=== PATIENT | female | born 1980 | race Caucasian/White ===

== ENCOUNTER 2025-01-11 15:07 | Inpatient (IN) | payer BC, SELFPAY ==
[2025-01-11] VITALS (7 sets, daily range): BP systolic 131–178; BP diastolic 80–110; BMI 30.1; BMI 30.6
--- NOTE | 2025-01-11 12:12 | ED.GENMED ---
History of Present Illness
General
Chief Complaint: Skin Problem
Source: patient
Exam Limitations: none
Time Seen by Provider: 01/11/25 12:02
History of Present Illness
History of Present Illness:
44yoF with a history of type 2 diabetes and hypertension presenting for evaluation of a right great toe infection. Symptoms initially began 6 days ago with an ingrown toenail. She was seen at urgent care 6 days ago and was started on
clarithromycin. She did not have any improvement with this so she was seen by a supervisor marble 3 days ago and her toenail was removed. She is here with worsening symptoms and a new ulcer on the toe. Wound culture at urgent care reportedly grew out
staph. She denies any fevers or chills. No prior history of MRSA.
Past History
Past History
ED Past Medical History: Negative Asthma, HTN, Hypercholesterolemia or NIDDM
ED Past Surgical History: None
Social History
Tobacco: Former smoker
Alcohol: Daily (Beer 4 and more on the weekends)
Personal:
Living: with family
Phy Exam
General Physical Exam
General Presentation: well appearing and no apparent distress
General Skin: warm and dry
General Habitus: normal
General Mental: alert
ENT Exam
ENT Exam: normocephalic
Neurological Exam
Neurological Exam: alert
[place] Coma Scale
Eye Opening: Spontaneous
Verbal Response: Oriented
Motor Response: Obeys Commands
GCS Total Score: 15
Skin Exam
Skin Exam: other (R great toe: Digit swollen with erythema extending into distal foot. There is purulence centrally. No crepitus or pain out of proportion. 2+ DP pulse.)
Psychiatric Exam
Psychiatric Exam: normal mood/affect
Course
Orders/Labs/Results
Orders:
Orders
01/11/25 12:09
Test Result ONCE
CR Toe(s) Min 2 Vw Right Urgent
Comment:
Reason For Exam: great toe infection
01/11/25 12:33
CRP [C-Reactive Protein] Urgent
Complete Blood Count/With Diff Urgent
Comprehensive Metabolic Panel Urgent
ESR [Erythrocyte Sed Rate] Urgent
HCG, Serum Qualitative Screen Urgent
Wound Culture [Wound/Abscess/Other Culture] Urgent
AINSLEY Source: Toe
Specimen Description:
Date Specimen was Collected: 01/11/25
Time Specimen was Collected: 12:20
Comment: R great toe
01/11/25 14:10
Cefepime HCl [Maxipime] 2,000 mg IV NOW STA
01/11/25 14:25
Vancomycin [Vancocin] 2,000 mg 0.9% Sodium Chloride 500 ml [Nss] 500 ml IV NOW
01/11/25 14:37
Consult Podiatry [PODIATRY CONSULT] Routine
Consulting Provider: Rodney Sarabia
Was physician already notified: Yes
01/11/25 14:38
Admit/Transfer Patient As Directed
Co-Sign Provider:
Level of Care: Inpatient admission
Assign to:: Medical/Surgical
Physician / Group: david san
Diagnosis: osteomyelitis
Reason for Hospitalization: osteomyelitis
Expected length of stay greater than two midnights?: Yes
ELOS- Estimated Length of Stay in days: 3
I certify the patient meets the requirements for IP care: Yes
PRN Pain Medication Management As Directed
May give lesser potent ordered pain med per pt: Yes
preference::
Protocol:: Medication orders for pain may be administered in a
manner that supports deferring to patient preference
when the pt is:
- Requesting an ordered lesser potent pain medication.
Least to most potent pain medications are defined
as: acetaminophen < NSAID < tramadol < opioids
(morphine, oxycodone, hydromorphone).
- Requesting a lesser dose of the same medication IF
ORDERED.
- Requesting a less intrusive route of administration
if both routes are prescribed by the provider (PO <
IV).
01/11/25 14:39
Code Status As Directed
Resuscitation Status: Full Code
Abnormal Lab Results
01/11/25
12:33
MCH 31.8 H pg
(27.0-31.0)
Absolute Neuts (auto) 7.1 H 10^3/uL
(1.4-6.5)
Absolute Monos (auto) 0.7 H 10^3/uL
(0.1-0.6)
ESR 34 H mm/hour
(0-20)
Sodium 134 L mmol/L
(135-145)
Creatinine 0.4 L mg/dL
(0.6-1.0)
Glucose 325 H mg/dl
(70-99)
C-Reactive Protein 26.70 H mg/L
(0.0-10.00)
01/11/25 12:33
01/11/25 12:33
Vital Signs
Initial and Last Documented VS:
Initial Vital Signs
Temp Pulse Resp BP Pulse Ox
98.1 F 104 16 178/110 98
01/11/25 10:52 01/11/25 10:52 01/11/25 10:52 01/11/25 10:52 01/11/25 10:52
Last Documented Vital Signs
Temp Pulse Resp BP Pulse Ox
97.5 F 86 22 152/95 95
01/11/25 12:44 01/11/25 12:44 01/11/25 12:44 01/11/25 12:44 01/11/25 12:44
MDM/Problems Addressed
Differential Diagnosis Includes:
44yoF here with a R great toe infection. Currently on clarithromycin without improvement. Had toenail removed by supervisor marble 3 days ago. No f/c. She is hypertensive with otherwise stable vitals. Toe is swollen and erythemaous with purulent drainage.
Differential diagnosis includes but is not limited to: Cellulitis, abscess, osteomyelitis
Initial ED plan: Check CBC, CMP, ESR/CRP, and toe x-rays.
*Critical Care Note
Total Time (30-74mins, 75-104mins- exclusive of procedures): Not Applicable
Update Note
Update Note:
White count normal. Both ESR and CRP are elevated. Glucose elevated at 325. X-ray shows findings concerning for osteomyelitis. IV cefepime and vancomycin ordered. Patient admitted for further management.
ED Attending Note
-
Portions of this chart may have been created with voice recognition software.� Occasional wrong word or��sound alike� substitutions may have occurred due to the inherent limitations of voice recognition software.
Discharge Plan
Departure
Patient Disposition: Admit
Date of Disposition: 01/11/25
Time of Disposition: 14:13
Presentation/result/management discussed w/ accepting MD/DO: Hospitalist
Discharge Problem:
Diabetic infection of right foot, Osteomyelitis of great toe of right foot
Interventions
Interventions:
*Risk Screen - Suicide Last Done: 01/11/25 10:52
*General Assessment Last Done: 01/11/25 12:44
*Neglect/Abuse Screening Last Done: 01/11/25 10:52
*ED- Fall Risk Assessment Last Done: 01/11/25 12:44
*ED COVID-19 Vaccine History Last Done: 01/11/25 12:44
ED-Skin Assessment Last Done: 01/11/25 12:44
[2025-01-11 12:50] LABS: % Basophils 0.6 % (0-2); % Eosinophils 1.8 % (0-6); % Immature Granulocytes 0.3 % (0-0.5); % Lymphocytes 24.3 % (20.5-51.1); % Monocytes 6.2 % (1.7-9.3); % Neutrophils 66.8 % (42.2-75.2); Absolute Basophils 0.1 10^3/uL (0-0.2); Absolute Eosinophils 0.2 10^3/uL (0-0.7); Absolute Lymphocytes 2.6 10^3/uL (1.2-3.4); Absolute Monocytes 0.7 10^3/uL (0.1-0.6); Absolute Neutrophils 7.1 10^3/uL (1.4-6.5); Hematocrit 42.3 % (37.0-47.0); Hemoglobin 14.7 g/dL (12.0-16.0); Mean Corp Hgb Conc. 34.8 g/dL (33.0-37.0); Mean Corpuscular Hgb 31.8 pg (27.0-31.0); Mean Corpuscular Volume 91.6 fL (81.0-99.0); Mean Platelet Volume 8.6 fL (7.4-10.4); Nucleated Red Blood Cells % 0 %; Platelet Count 319 10^3/uL (130-400); Red Blood Cell Count 4.62 10^6/uL (4.20-5.40); Red Cell Dist. Width 12.4 % (11.5-14.5); White Blood Cell Count 10.6 10^3/uL (4.8-10.8)
[2025-01-11 13:02] LABS: HCG, Serum Qualitative Screen Negative
[2025-01-11 13:03] LABS: ALT (SGPT) 13 U/L (0-35); AST (SGOT) 16 U/L (14-36); Albumin 3.6 g/dl (3.5-5.0); Alkaline Phosphatase 105 U/L (38-126); Blood Urea Nitrogen 10 mg/dl (7-17); Calcium 9.1 mg/dl (8.4-10.2); Carbon Dioxide 24 mmol/L (22-30); Chloride 104 mmol/L (98-107); Estimated Creatinine Clearance 119 ml/min; Glucose 325 mg/dl (70-99); Potassium 4.6 mmol/L (3.5-5.1); Sodium 134 mmol/L (135-145); Total Bilirubin 0.6 mg/dl (0.2-1.3); eGFR > 60.00
[2025-01-11 13:13] LABS: Erythrocyte Sed Rate 34 mm/hour (0-20)
--- NOTE | 2025-01-11 14:16 | HPS.HSE ---
Addendum entered and electronically signed by Maurilio Cronin MD 01/11/25 15:10:
I saw and examined the patient.
The EYEGLASS LENS CUTTER or PA's note was reviewed and I agree with the note.
Comment: see updated note
Original Note:
Family Physician
-
Family Physician: Don Last MD
Chief Complaint
-
right great toe infection
History of Present Illness
44yoF with a history of type 2 diabetes and hypertension presenting for evaluation of a right great toe infection. a week an half ago, patient pulled ingrown toe nail with clipper. after few days, she noticed redness and swelling. patient was
evaluated by Urgent care who prescribed her abx on Sunday. patient noticed worsening redness and swelling. her wound culture from Urgent care grew staph. the Podiatry removed her toe nails on . today she woke up with ulcer on her toe,
worsening redness and weeping from her wound. denied fever, chills, BEEBE, dizzy . denied chest pain, sob.denied abdominal pain,n,v,d. denied dysuria or hematuria.
wound culture sent from ER. X ray of toes pending. initiated on cefepime and vanco
Medical History
Past Medical History
Past Medical History: Reports Other
Additional Past Medical History:
Type 2 DM
HTN
depression
Past Surgical History: Reports Other
Additional Past Surgical History:
c section
Social History
Tobacco: Smoker
Alcohol: Occasional
Drug: None
Family History
Family History: Not pertinent
Allergies / Home Medications
Allergies reflects when Allergies were last updated in [facility].
Home Medications with original date entered in [facility]
Allergy/Medication List:
Allergies
Allergy/AdvReac Type Severity Reaction Status Date / Time
Penicillins Allergy Nausea / Verified 01/11/25 10:55
Vomiting
Home Medications
ibuprofen 400 mg tablet 400 mg PO Q6HPRN PRN as directed 12/16/17
Review of Systems
-
Constitutional: Reports No Symptoms
EENT: Reports No Symptoms
Respiratory: Reports No Symptoms
Cardiac: Reports No Symptoms
Abdomen/GI: Reports No Symptoms
: Reports No Symptoms
Musculoskeletal: Reports No Symptoms
Skin: Reports Other (right great toe infection)
Neurological: Reports No Symptoms
Endocrine: Reports No Symptoms
Hematologic/Lymphatic: Reports No Symptoms
Psych: Reports No Symptoms
Physical Exam
Vital Signs
Vital Signs
Temp Pulse Resp BP Pulse Ox
97.5 F 86 22 152/95 95
01/11/25 12:44 01/11/25 12:44 01/11/25 12:44 01/11/25 12:44 01/11/25 12:44
Physical Exam
General: Well Developed, Well Nourished and No Apparent Distress
HEENT: NormoCephalic, Moist mucous membranes and Atraumatic
Respiratory: Clear
Cardiac: S1/S2 and Regular Rhythm; No Murmur or Rub
GI: Soft, Non Tender, Non Distended and Normal Bowel Sounds; No Organomegaly
Rectal: Deferred by Provider
Musculoskeletal: No Clubbing, No Cyanosis and No Edema
Skin: Rash and Other (right great toe wound with purulent drainage)
Neuro: AO x 3 and Nonfocal/grossly intact
Psych: Calm
Laboratory Results
-
01/11/25 12:33
01/11/25 12:33
Laboratory Results
Total Bilirubin 0.6 mg/dl (0.2-1.3) 01/11/25 12:33
AST 16 U/L (14-36) 01/11/25 12:33
ALT 13 U/L (0-35) 01/11/25 12:33
Alkaline Phosphatase 105 U/L (38-126) 01/11/25 12:33
Data Reviewed
-
Diagnostic Radiology: Report Reviewed by me
Lab Data: Labs Reviewed by me
Impression/Plan
-
#Right great toe infection/osteomyelitis
-failed outpatient oral abx
-ESR 34, CRP 26
-cefepime and vanco continued
-podiatry consulted
-Tylenol prn for fever, and pain
-toe x r ay There is severe darrick erosive change/lucency within the distal phalanx tuft of the great toe, in keeping with osteomyelitis. Overlying soft tissue swelling.No acute fracture or dislocation. Joint spaces are well-maintained.
-wound culture sent from ER
#type 2 DM with hyperglycemia
-blood sugar in 300s
-metformin held
-sliding scale
-CHO diet
#essential HTN
-losartan and Norvasc continued with hold parameter
#DVT prophylaxis
-heparin sq
#CODE status
-full code
--- NOTE | 2025-01-11 14:23 | W.PN.UPDATE ---
Update Note
Progress Note Update
This note serves as an addendum to the H&P by casket coverer STEVE
Lynsey MUNDO
HPI
44F HX T2DM sen at ER
- for or evaluation of a right great toe infection initially began 6 days ago with an ingrown toenail.
- seen at urgent care 6 days ago and was started on clarithromycin.
- did not have any improvement with this so she was seen by a blade sharpener 3 days ago and her toenail was removed. She is here with worsening symptoms and a new ulcer on the toe.
- Wound culture at urgent care reportedly grew out staph.
- She denies any fevers or chills.
- No prior history of MRSA.
Vital Signs
Temp Pulse Resp BP Pulse Ox
97.5 F 86 22 152/95 95
01/11/25 12:44 01/11/25 12:44 01/11/25 12:44 01/11/25 12:44 01/11/25 12:44
PE
Gen: Not toxic
HEENT: anicteric , no pallor
Neck: supple. No JVD
Lungs: symmetric AE. CTA
Cor: RRR S1 S2 . No mumur
Abdomen: benign exam
COMMUNICATIONS ADVISOR AAO3. Grossly non focal
Skin & MS:
Psych: normal mood and affect
Lab
01/11/25
12:33
WBC 10.6
ESR 34 H
C-Reactive Protein 26.70 H
HCG, Qual Negative
XR Rt great toe: reports pending
NO PRIOR hospitalist admission:
ASSESSMENT & PLAN
Pending Rx reconciliation
Purulent SSTI of Rt Great toe complicated by XR suggestion of acute OM in distal phalanx tuft of Rt Great toe
s/p self removal of ingrowing toe nail with nail clippers trauma while
S/P total toe nail removal by blade sharpener
- No associated sepsis
- Elevated inflammatory markers
- Pending XR for OM
- WD Cx POS Staph ( MRSA vs MSSA ) from [facility] - to obtain records for m [facility]
- Agree with IV Vancomycin and CFP
- Director Of Supply Chain consult
T2DM
- Hold Metformin
- add ISS
DVT Px: LMWH
Full code
IP MS
[2025-01-11] MEDS: MAXIPIME 2000 MG IV (14:51)
[2025-01-11] MEDS: VANCOCIN 540 MG IV (14:52)
--- NOTE | 2025-01-11 15:30 | W.PN.UPDATE ---
Update Note
Progress Note Update
Patient seen at beside Right hallux osteotmyelitis
-Broad spectrum ABx, consult ID
-Stat MRI Right lower extremity
-Plan for OR tomorrow, partial toe ampuation, will leave open to drain
-Iodine to right hallux wound
-heel weight bearing
-strict glycemic control
-Will follow
--- NOTE | 2025-01-11 17:12 | EDRN ---
this RN called the receiving unit and notified the receiving nurse that the pt was going to be sent up
--- NOTE | 2025-01-11 18:23 | PHA.VAN.IN ---
Assessment
- Assessment
Renal Function: Appears similar to baseline
Maximum Temperature: 98.7
Minimum Temperature: 97.5
Concomitant Antimicrobials: CEFEPIME
AUC Dosing Plan
- Dosing Variables
Dosing Weight (kg): 80.7
Dosing CrCl (ml/min): 120
Vd coefficient (L/kg): 0.6
- Empiric Dosing
Initial / Loading Dose: 2000MG
Maintenance Regimen: 1250MG Q12H
Estimated AUC (mcg*h/mL): 535
Estimated Peak (mcg*h/mL): 36.2
Estimated Trough (mcg/ml): 12.2
Estimated Half Life (H): 6.7
- Monitoring
No levels ordered at this time: Consider levels in next few days
Pharmacokinetics Vancomycin I
- -
Patient Age: 44
Patient Sex: Female
Vancomycin Day #: 1
Indication: Skin And Soft Tissue
Requesting Provider: Kelsie FLOWER
Pertinent Antimicrobial Allergies:
PENICILLINS
Height / Weight:
Height 5 ft 4 in
Actual Weight 80.739 kg
- Vital Signs / Lab Results
Temp Pulse Resp BP Pulse Ox
98.7 F 85 20 149/99 94
01/11/25 18:06 01/11/25 18:06 01/11/25 18:06 01/11/25 18:06 01/11/25 18:06
Lab Results - Hematology
01/11/25
12:33
WBC 10.6
Lab Results - Chemistry
01/11/25
12:33
BUN 10
Creatinine 0.4 L
Estimated Creat Clear 119
Albumin 3.6
Microbiology Results
01/11/25 12:33 Gram Stain - Preliminary
Toe
--- NOTE | 2025-01-11 18:30 | PTCARENOTE ---
Pt arrived to floor from ED via stretcher. Ambulated to unit bed. Right halux red, swollen. Pt stating minimal pain. Health history obtained and assessment as documented.
[2025-01-11] MEDS: NOVOLOG FLEXPEN-MODERATE RESISTANCE 3 UNITS SC (18:33)
[2025-01-11] MEDS: TYLENOL 650 MG PO (18:39)
[2025-01-11 18:40] LABS: Glucose - Point of Care 242 mg/dl (70-99)
[2025-01-11] MEDS: HEPARIN 5000 UNITS SC (21:00)
[2025-01-11] MEDS: STERILE WATER FOR INJECTION 10 ML IV (21:04)
[2025-01-11] MEDS: MAXIPIME 1000 MG IV (21:04)
[2025-01-11 21:43] LABS: Glucose - Point of Care 298 mg/dl (70-99)
[2025-01-12] VITALS (10 sets, daily range): BP systolic 103–142; BP diastolic 58–95
[2025-01-12] MEDS: MAXIPIME 1000 MG IV ×4 (04:45→21:20)
[2025-01-12] MEDS: STERILE WATER FOR INJECTION 10 ML IV ×4 (04:46→21:20)
[2025-01-12] MEDS: VANCOCIN 275 MG IV (06:20)
[2025-01-12 06:23] LABS: Glucose - Point of Care 290 mg/dl (70-99)
[2025-01-12] MEDS: NOVOLOG FLEXPEN-MODERATE RESISTANCE 5 UNITS SC ×2 (06:24→17:14)
--- NOTE | 2025-01-12 07:59 | W.PN.HOSP.TC ---
Today's Communication/Plan
-
-Follow Wound culture which was taken at OR this am
-Discontinue vancomycin
-Continue cefepime
-Started oral metronidazole
-insulin started
-Diabetic STADIUM MANAGER consulted
Assessment / Plan
Assessment / Plan
Patient is a 44-year-old female with a past medical history of type 2 diabetes mellitus, hypertension and depression. The patient presented to the ER with her right toe ulcer and oozing from that area. Her toe x-ray showed severe darrick erosive
change/lucency within the distal phalanx tuft of the great toe, in keeping with osteomyelitis. Overlying soft tissue swelling. She was consulted to podiatry, wound care team and infectious disease.
# Right toe infection complicated with osteomyelitis
- Toe x-ray: There is severe darrick erosive change/lucency within the distal phalanx tuft of the great toe, in keeping with osteomyelitis. Overlying soft tissue swelling.
- Toe MRI:Darrick osteomyelitis throughout the great toe distal phalanx. Reactive osteitis of the proximal phalanx. Surrounding subcutaneous edema without abscess. Cannot rule out early septic arthritis of the interphalangeal joint.
-Podiatry consulted: Had amputation this am: Had right open hallux amputation with a plan for return to the OR on 514 for closure--cultures taken
-Wound culture at surgery is pending-taking 01/12/2025-
-Wound culture at admission on 01/11/2025: Grew Staph aureus
- Discontinue vancomycin
- Continue cefepime
- Started oral metronidazole
# Type 2 diabetes mellitus
- Hemoglobin A1c:12.0--last year it was 9
- Denies neuropathy
- Tight glucose control is needed for this patient
-Metformin hold for now
- mod ISS
-Insulin started
- Diabetic diet
- Diabetic STADIUM MANAGER was consulted
# Hypertension
- Continue Norvasc 10 mg
- Continue losartan
# Depression
- Continue sertraline 50
#DVT prophylaxis
-heparin sq
#CODE status
-full code
Anticipated Discharge: 24 - 48 hours
Subjective/Interval History
-
Date of Service: January 12, 2025
Patient had her right total amputated this a.m. Denies any pain on surgical site.
Objective Data
-
Labs:
Laboratory Results
01/12/25
07:42
WBC Pending
Hgb Pending
Hct Pending
Plt Count Pending
Sodium Pending
Potassium Pending
Chloride Pending
Carbon Dioxide Pending
BUN Pending
Creatinine Pending
Glucose Pending
Calcium Pending
Vital Signs:
Vital Signs
Temp Pulse Resp BP Pulse Ox
98.6 F 69 16 146/80 96
01/11/25 23:01 01/11/25 23:01 01/11/25 23:01 01/11/25 23:01 01/11/25 23:01
Review of Systems
-
History Source: Patient
EENT: Reports No Symptoms Reported
Respiratory: Reports No Symptoms
Cardiac: Reports No Symptoms
Abdomen/GI: Reports No Symptoms
Musculoskeletal: Reports Joint Swelling (Right toe swelling before the surgery)
Skin: Reports No Symptoms
Neuro: Reports No Symptoms
Physical Exam
-
General: Well Developed, Well Nourished, Comfortable and Conversant
HEENT: Normocephalic and Atraumatic
Respiratory: Clear to Auscultation
Cardiac: Regular Rhythm and S1/S2
GI: Soft, Nontender and Nondistended
Musculoskeletal: No Clubbing, No Cyanosis, No Edema and Other (Patient's right foot was seen in bandage. )
Skin: Warm
Neuro: Awake, Alert, Oriented, AO x 3 and Nonfocal/Grossly Intact
Psych: Calm
--- NOTE | 2025-01-12 08:44 | CON.ID ---
Consultation
-
Date/Time Consultation Requested: January 12, 2025 0800
Date/Time Consultation Performed: January 12, 2025 0845
Requesting Provider: Dr. Cece Stout
Performing Provider: Dr. Luz Elena Colunga
Reason for Consultation: Toe osteo
Chief Complaint / Past History
Chief Complaint
Toe infection
History of Present Illness
44-year-old female with history of diabetes mellitus who presented to the hospital on January 11 due to worsening right great toe redness and swelling. Approximately 2 weeks ago she tried to remove an ingrown toenail from the right great toe. Few days
later the toe became red and swollen. On January 05 she went to [facility] urgent care, toe drainage was swabbed which was positive for MSSA and Prevotella. She was prescribed clarithromycin. She then had follow-up with podiatry on at which time the
nail was removed. However yesterday morning she woke up with drainage, increased redness and swelling from the toe. No fevers or chills. X-ray of the toe shows erosive bone changes concerning for osteomyelitis. She just returned from the MRI.
Denies neuropathy.
Past History
Additional Past Medical History:
DM2
HTN
Depression
Additional Past Surgical History:
Allergy History:
Penicillins Allergy (Verified 01/11/25 10:55)
Nausea / Vomiting
Medications Reviewed: Yes
Current Antibiotics:
Cefepime 1g IV q6h
Vancomycin
Social History
Tobacco: Smoker
Alcohol: Occasional
Drug: None
Personal:
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
Family History
Family History: Not Pertinent
Review of Systems
Review of Systems
General: Negative Fever, Chills or Change in Appetite
HEENT: Negative Sinus Problems or Headache
Cardiovascular: Negative Chest Pain
Respiratory: Negative Cough
Gasteroenterology: Negative Nausea, Vomiting or Diarrhea
Genital / Urological: Negative Dysuria
Endocrine: Negative Weakness or Fatigue
Vital Signs
Temp Pulse Resp BP Pulse Ox
98.2 F 72 16 139/80 97
01/12/25 07:55 01/12/25 07:55 01/12/25 07:55 01/12/25 07:55 01/12/25 07:55
Physical Exam
Physical Exam
Constitutional: No Acute Distress and Comfortable
Eyes: No Conjunctival Hemorrhage and Sclera Anicteric
Cardiovascular: Regular Rate and S1/S2
Pulmonary: Clear
Gastrointestinal: Soft, Non Tender, Non Distended and Normal Bowel Sounds
Genito-Urinary: Negative CVA Tenderness
Extremities: Pulses (strong pedal pulses bilaterally)
Wound: Other (Right great toe 3+ edema, erythema entire toe to forefoot, dorsal wound with purulent drainage.)
Neurological: AO x 3
Lab / Diagnostic Study Results
Abs Immat Gran (auto) 0.0 10^3/uL (0-0.05) 01/11/25 12:33
Absolute Neuts (auto) 7.1 10^3/uL (1.4-6.5) H 01/11/25 12:33
Absolute Lymphs (auto) 2.6 10^3/uL (1.2-3.4) 01/11/25 12:33
Absolute Monos (auto) 0.7 10^3/uL (0.1-0.6) H 01/11/25 12:33
Absolute Basos (auto) 0.1 10^3/uL (0-0.2) 01/11/25 12:33
Immature Gran % 0.3 % (0-0.5) 01/11/25 12:33
Neutrophils % 66.8 % (42.2-75.2) 01/11/25 12:33
Lymphocytes % 24.3 % (20.5-51.1) 01/11/25 12:33
Monocytes % 6.2 % (1.7-9.3) 01/11/25 12:33
Eosinophils % 1.8 % (0-6) 01/11/25 12:33
Basophils % 0.6 % (0-2) 01/11/25 12:33
ESR 34 mm/hour (0-20) H 01/11/25 12:33
C-Reactive Protein 26.70 mg/L (0.0-10.00) H 01/11/25 12:33
Microbiology Results
Micro:
01/11/25 21:33 MRSA Screen - Pending
Nose
01/11/25 12:33 Wound Culture - Pending
Toe Gram Stain - Preliminary
01/11/25 Toe XRAY: There is severe darrick erosive change/lucency within the distal phalanx tuft of the great toe, in keeping with osteomyelitis. Overlying soft tissue swelling.
Assessment / Plan
# Right great toe osteo
# Diabetic ulcer
- Await MRI result
-Outpt swab MSSA, prevotella
- DC Vancomycin
-Continue cefepime.
-Add po metronidazole.
- For toe amputation.
- Recommend tight glucose control.
[2025-01-12 09:20] LABS: Blood Urea Nitrogen 10 mg/dl (7-17); Calcium 8.8 mg/dl (8.4-10.2); Carbon Dioxide 24 mmol/L (22-30); Chloride 104 mmol/L (98-107); Estimated Creatinine Clearance 120 ml/min; Glucose 279 mg/dl (70-99); Potassium 4.5 mmol/L (3.5-5.1); Sodium 133 mmol/L (135-145); eGFR > 60.00
[2025-01-12] MEDS: HEPARIN SC (09:37)
[2025-01-12] MEDS: ZOLOFT 50 MG PO (09:45)
[2025-01-12] MEDS: NORVASC 10 MG PO (09:45)
[2025-01-12] MEDS: COZAAR 50 MG PO (09:45)
[2025-01-12] MEDS: NOVOLOG FLEXPEN-MODERATE RESISTANCE 3 UNITS SC (11:53)
[2025-01-12 12:04] LABS: Glucose - Point of Care 248 mg/dl (70-99)
--- NOTE | 2025-01-12 12:04 | CM ---
Patient seen bedside.
DX osteo of right great toe.
IA completed.
patient lives with significant other and 3 children in a 2 story home with 3 steps to enter.
No assistive devices.
Patient drives and works.
Patient independent prior to admission.
Patient has not had VN or skilled rehab.
SO will transport home.
Patient for OR today.
PCP: Dr Last
Pharmacy: [facility]
Plan: home with possible VN
--- NOTE | 2025-01-12 13:50 | W.PN.SURGUPD ---
Surgical Update
Surgical Update
44 yo F s/p R partial hallux open amputation left open
-Dressings to remain C/D/I
-Abx per ID recs, 1x culture 1x pathology obtained
-Heel WBAT to RLE
-Plan for return to OR 01/15 for repeat washout and closure if appropriate
[2025-01-12 13:59] LABS: Glucose - Point of Care 210 mg/dl (70-99)
[2025-01-12 14:19] LABS: Glucose - Point of Care 220 mg/dl (70-99)
--- NOTE | 2025-01-12 14:19 | WOUNDNOTE ---
WOC RN note: Confirmed with Dr. Ed Pa to cancel WOC RN consult. Patient's toe being managed by podiatric surgeon.
--- NOTE | 2025-01-12 15:17 | PTCARENOTE ---
perot received from pacu. pt returned back to room. aaox3. vss. pulse ox 91%. 2lnc placed for comfort. r toe bulky dressing cdi. no complaints offered at this time. call rowe in reach. will monitor.
[2025-01-12] MEDS: FLAGYL 500 MG PO ×2 (15:29→21:19)
[2025-01-12 17:12] LABS: Glucose - Point of Care 262 mg/dl (70-99)
[2025-01-12 18:29] LABS: Hematocrit 44.4 % (37.0-47.0); Hemoglobin 15.1 g/dL (12.0-16.0); Mean Corpuscular Hgb 32.1 pg (27.0-31.0); Mean Corpuscular Volume 94.3 fL (81.0-99.0); Platelet Count 332 10^3/uL (130-400); Red Blood Cell Count 4.71 10^6/uL (4.20-5.40); Red Cell Dist. Width 12.7 % (11.5-14.5); White Blood Cell Count 9.4 10^3/uL (4.8-10.8)
[2025-01-12] MEDS: HEPARIN 5000 UNITS SC (21:15)
[2025-01-12] MEDS: TYLENOL 650 MG PO (21:15)
[2025-01-12 21:31] LABS: Glucose - Point of Care 298 mg/dl (70-99)
[2025-01-12] MEDS: LANTUS 0.15 UNITS SC (21:37)
[2025-01-13] VITALS (7 sets, daily range): BP systolic 120–150; BP diastolic 66–96; PULSE 63–76; O2SAT 97
[2025-01-13] MEDS: STERILE WATER FOR INJECTION 10 ML IV (04:20)
[2025-01-13] MEDS: MAXIPIME 1000 MG IV (04:20)
[2025-01-13] MEDS: FLUSH (NSS) 2 FLUSH IV (04:21)
--- NOTE | 2025-01-13 07:09 | W.PN.HOSP.TC ---
Today's Communication/Plan
-
-Cefepime narrowed to to cefazolin
-Continue oral metronidazole
-Insulin maintenance dose adjusted
Assessment / Plan
Assessment / Plan
Patient is a 44-year-old female with a past medical history of type 2 diabetes mellitus, hypertension and depression. The patient presented to the ER with her right toe ulcer and oozing from that area. Her toe x-ray showed severe darrick erosive
change/lucency within the distal phalanx tuft of the great toe, in keeping with osteomyelitis. Overlying soft tissue swelling. She was consulted to podiatry, wound care team and infectious disease.
# Right toe septic arthritis complicated with osteomyelitis
- Toe x-ray: There is severe darrick erosive change/lucency within the distal phalanx tuft of the great toe, in keeping with osteomyelitis. Overlying soft tissue swelling.
- Toe MRI:Darrick osteomyelitis throughout the great toe distal phalanx. Reactive osteitis of the proximal phalanx. Surrounding subcutaneous edema without abscess. Cannot rule out early septic arthritis of the interphalangeal joint.
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
-Wound culture at surgery is pending-taking 01/12/2025: Staphylococcus aureus and group F Streptococcus
-Wound culture at admission on 01/11/2025: Grew Staph aureus: MSSA
- Discontinue vancomycin
- ID narrowed cefepime to cefazolin
- Continue oral metronidazole
- Pain management: Oxycodone PRN
# Type 2 diabetes mellitus
- Hemoglobin A1c:12.0--last year it was 9
- Denies neuropathy
- Tight glucose control
-Metformin hold for now
- mod ISS
-Insulin started and dose adjusted by diabetic PRE CODER
- Diabetic diet
# Hypertension
- Continue Norvasc 10 mg
- Continue losartan
# Depression
- Continue sertraline 50
#DVT prophylaxis
-heparin sq
#CODE status
-full code
Anticipated Discharge: 24 - 48 hours
Subjective/Interval History
-
Date of Service: January 13, 2025
Patient denies any fever or chills. No pain on surgical site
Objective Data
-
Labs:
Laboratory Results
01/13/25
07:02
WBC Pending
Hgb Pending
Hct Pending
Plt Count Pending
Sodium Pending
Potassium Pending
Chloride Pending
Carbon Dioxide Pending
BUN Pending
Creatinine Pending
Glucose Pending
Calcium Pending
Total Bilirubin Pending
AST Pending
ALT Pending
Alkaline Phosphatase Pending
Vital Signs:
Vital Signs
Temp Pulse Resp BP Pulse Ox
98.3 F 62 16 123/80 96
01/13/25 03:00 01/13/25 03:00 01/13/25 03:00 01/13/25 03:00 01/13/25 03:00
I&O
01/12/25 01/13/25 01/14/25
06:59 06:59 06:59
Intake Total 480 / 480
Balance 480 / 480
Review of Systems
-
History Source: Patient
EENT: Reports No Symptoms Reported
Respiratory: Reports No Symptoms
Cardiac: Reports No Symptoms
Abdomen/GI: Reports No Symptoms
Genitourinary: Reports No Symptoms
Musculoskeletal: Reports Other (See HPI )
Skin: Reports No Symptoms
Neuro: Reports No Symptoms
Physical Exam
-
General: Well Developed, Well Nourished, Comfortable and Conversant
HEENT: Normocephalic and Atraumatic
Respiratory: Clear to Auscultation
Cardiac: Regular Rhythm and S1/S2
GI: Soft, Nontender and Nondistended
Musculoskeletal: No Clubbing, No Cyanosis, No Edema and Other (See HPI)
Skin: Warm
Neuro: Awake, Alert, Oriented, AO x 3 and Nonfocal/Grossly Intact
Psych: Calm
[2025-01-13] MEDS: HEPARIN 5000 UNITS SC ×2 (07:18→22:10)
[2025-01-13] MEDS: COZAAR 50 MG PO (07:18)
[2025-01-13] MEDS: FLAGYL 500 MG PO ×3 (07:18→22:10)
[2025-01-13] MEDS: NORVASC 10 MG PO (07:18)
[2025-01-13] MEDS: ZOLOFT 50 MG PO (07:18)
[2025-01-13 07:37] LABS: Hematocrit 38.9 % (37.0-47.0); Hemoglobin 13.6 g/dL (12.0-16.0); Mean Corpuscular Volume 91.5 fL (81.0-99.0); Mean Platelet Volume 8.8 fL (7.4-10.4); Platelet Count 312 10^3/uL (130-400); Red Blood Cell Count 4.25 10^6/uL (4.20-5.40); Red Cell Dist. Width 12.2 % (11.5-14.5); White Blood Cell Count 10.7 10^3/uL (4.8-10.8)
[2025-01-13 07:50] LABS: ALT (SGPT) 13 U/L (0-35); AST (SGOT) 14 U/L (14-36); Albumin 3.5 g/dl (3.5-5.0); Alkaline Phosphatase 92 U/L (38-126); Blood Urea Nitrogen 11 mg/dl (7-17); Calcium 8.8 mg/dl (8.4-10.2); Carbon Dioxide 23 mmol/L (22-30); Chloride 106 mmol/L (98-107); Estimated Creatinine Clearance 120 ml/min; Glucose 218 mg/dl (70-99); Potassium 4.1 mmol/L (3.5-5.1); Sodium 132 mmol/L (135-145); Total Bilirubin 0.5 mg/dl (0.2-1.3); Total Protein 7.5 g/dl (6.3-8.2); eGFR > 60.00
[2025-01-13] MEDS: NOVOLOG FLEXPEN 3 UNITS SC (07:55)
[2025-01-13] MEDS: NOVOLOG FLEXPEN-MODERATE RESISTANCE 3 UNITS SC ×2 (07:55→12:21)
--- NOTE | 2025-01-13 08:01 | W.PN.SURGUPD ---
Surgical Update
Surgical Update
44 yo F s/p open right hallux amputation 01/12
-Patient recovering well at bedside, dressings to remain C/D/I
-Pain improving
-Continue antibiotics per ID recs, f/u culture results
-Tentatively plan for return to OR 01/15 for closure if appropriate
-Heel WBAT for transfers to [facility]
--- NOTE | 2025-01-13 08:29 | PN.DE.MGMTRT ---
Insulin Management
- -
01/14/2024: Diabetes Management Consult
44 year old female with PMH: HTN, Depression and T2DM, presented to the ER with her right toe ulcer and oozing from that area. Her toe x-ray showed severe darrick erosive change/lucency within the distal phalanx tuft of the great toe, concerning for
osteomyelitis. Now s/p right open hallux amputation with a plan for return to the OR on 01/14 for closure. Diabetes team consulted to assist with management of hyperglycemia.
Pt awake, alert, oriented, sitting up in bed, offers no complaints, able to discuss diabetes care plan.
States she was initially dx with T2DM 2 years ago. Has been taking Metformin 1000mg BID prior to admission. A1C 12.0%, reports it was 9 last year but she gave up on herself taking care of her Dtr who was dealing with ulcerative colitis. Cr 0.5,
eGFR >60.
Current diabetes regimen includes Lantus 15 units and NovoLog 3 units AC.
Glucose uncontrolled with FBG 218, Premeal range 210 to 290 requiring 3-5 units of additional corrective insulin with meals.
Will give an additional 1 time dose of 5 units aspart this morning before breakfast.
Increase AC NovoLog to 6 units and Lantus to 18 units @ HS. Metformin will remain on hold for now in anticipation for upcoming surgery.
Discussed with pt current A1C and emphasized importance of optimal glucose control for wound healing and to avoid further diabetes related complications.
Will con to follow and make further insulin dose adjustments if necessary
Diabetes History
- -
Type of Diabetes: 2 requiring insulin
Pre-Admission Diabetes Regimen
01/12/25 01/13/25
07:42 07:02
Creatinine 0.4 L 0.5 L
Lab Results
Hemoglobin A1c 12.0 % (4.0-5.6) H 01/12/25 07:42
Insulin Pump Settings
IP Diabetes Regimen
01/12/25 01/12/25 01/12/25
07:42 11:53 13:56
Glucose 279 H
POC Glucose 248 H 210 H
01/12/25 01/12/25 01/12/25
14:18 17:00 21:19
Glucose
POC Glucose 220 H 262 H 298 H
01/13/25
07:02
Glucose 218 H
POC Glucose
Patient Education
[2025-01-13] MEDS: NOVOLOG FLEXPEN 5 UNITS SC (09:04)
--- NOTE | 2025-01-13 10:34 | W.PN.ID1 ---
Date of Service
Date of Service: January 13, 2025
Today's Communication
NArrow cefepime to cefazolin.
Assessment / Plan
# Distal Right great toe osteo
# Diabetic ulcer
- 01/12/25 s/p open toe amp.
- OR cx and path pending
-Inpt swab S. aureus
-Outpt swab MSSA, prevotella
- Narrow cefepime to cefazolin.
- Continue po metronidazole for now.
- For wound closure 01/15, per podiatry
- Recommend tight glucose control.
Chief Complaint
-: Other (Osteo)
Subjective / Review of Systems
No post-op pain.
Vital Signs / Physical Exam
Vital Signs
Vital Signs
Temp Pulse Resp BP Pulse Ox
98.4 F 58 14 131/78 99
01/13/25 07:47 01/13/25 07:47 01/13/25 07:47 01/13/25 07:47 01/13/25 07:47
Objective Data
Lab Data
Lab Results
01/13/25 07:02
01/13/25 07:02
ESR 34 mm/hour (0-20) H 01/11/25 12:33
Estimated Creat Clear 120 ml/min 01/13/25 07:02
Total Bilirubin 0.5 mg/dl (0.2-1.3) 01/13/25 07:02
AST 14 U/L (14-36) 01/13/25 07:02
ALT 13 U/L (0-35) 01/13/25 07:02
Alkaline Phosphatase 92 U/L (38-126) 01/13/25 07:02
C-Reactive Protein 26.70 mg/L (0.0-10.00) H 01/11/25 12:33
Most recent labs reviewed.
Micro Results:
01/11/25 12:33 Wound Culture - Preliminary
Toe Staphylococcus aureus
Coagulase neg. staphylococcus
Gram Stain - Preliminary
01/11/25 21:33 MRSA Screen - Final
Nose No Methicillin Resistant Staphylococcus aureus isolated.
01/12/25 13:50 Wound Culture - Pending
Toe Gram Stain - Preliminary
01/12/25 13:50 Anaerobic Culture - Pending
Toe
01/11/25 Toe XRAY: There is severe darrick erosive change/lucency within the distal phalanx tuft of the great toe, in keeping with osteomyelitis. Overlying soft tissue swelling.
01/12/25 MRI: Darrick osteomyelitis throughout the great toe distal phalanx. Reactive osteitis of the proximal phalanx. Surrounding subcutaneous edema without abscess. Cannot rule out early septic arthritis of the interphalangeal joint.
[2025-01-13] MEDS: STERILE WATER FOR INJECTION IV (10:51)
[2025-01-13] MEDS: MAXIPIME IV (10:51)
--- NOTE | 2025-01-13 11:50 | CM ---
Patient seen bedside.
Post op partial amputation.
Per patient plan is for return to OR .
Patient peterson of CM availability should needs arise.
Discussed possible VN and anbx.
PLan: home with possible IV anbx/VN needs.
[2025-01-13] MEDS: NOVOLOG FLEXPEN 6 UNITS SC ×2 (12:21→17:45)
[2025-01-13] MEDS: ANCEF 10 IV ×2 (14:18→22:11)
[2025-01-13] MEDS: TYLENOL 650 MG PO ×2 (14:28→19:47)
[2025-01-13] MEDS: NOVOLOG FLEXPEN-MODERATE RESISTANCE 5 UNITS SC (17:45)
[2025-01-13 17:47] LABS: Glucose - Point of Care 255 mg/dl (70-99)
[2025-01-13 17:47] LABS: Glucose - Point of Care 212 mg/dl (70-99)
[2025-01-13 21:39] LABS: Glucose - Point of Care 282 mg/dl (70-99)
[2025-01-13] MEDS: LANTUS 0.18 UNITS SC (22:10)
[2025-01-14] MEDS: ANCEF 10 IV ×3 (06:26→21:23)
[2025-01-14 07:23] LABS: Hematocrit 39.2 % (37.0-47.0); Hemoglobin 13.7 g/dL (12.0-16.0); Mean Corp Hgb Conc. 34.9 g/dL (33.0-37.0); Mean Corpuscular Hgb 32.1 pg (27.0-31.0); Mean Corpuscular Volume 91.8 fL (81.0-99.0); Mean Platelet Volume 8.8 fL (7.4-10.4); Platelet Count 327 10^3/uL (130-400); Red Blood Cell Count 4.27 10^6/uL (4.20-5.40); Red Cell Dist. Width 12.5 % (11.5-14.5); White Blood Cell Count 9.3 10^3/uL (4.8-10.8)
--- NOTE | 2025-01-14 07:26 | W.PN.HOSP.TC ---
Today's Communication/Plan
-
-Continue to cefazolin and oral metronidazole
-Surgery plan for tomorrow
-NPO after midnight
-Follow-up anaerobic wound culture result
Assessment / Plan
Assessment / Plan
Patient is a 44-year-old female with a past medical history of type 2 diabetes mellitus, hypertension and depression. The patient presented to the ER with her right toe ulcer and oozing from that area. Her toe x-ray showed severe darrick erosive
change/lucency within the distal phalanx tuft of the great toe, in keeping with osteomyelitis. Overlying soft tissue swelling. She was seen by podiatry, wound care team, infectious disease and diabetic nurse practitioner.
# Right toe septic arthritis complicated with osteomyelitis
- Toe x-ray: There is severe darrick erosive change/lucency within the distal phalanx tuft of the great toe, in keeping with osteomyelitis. Overlying soft tissue swelling.
- Toe MRI:Darrick osteomyelitis throughout the great toe distal phalanx. Reactive osteitis of the proximal phalanx. Surrounding subcutaneous edema without abscess. Cannot rule out early septic arthritis of the interphalangeal joint.
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
-Anaerobic wound culture at surgery is pendin01/12/2025--- wound culture grew out Staphylococcus aureus and group F Streptococcus
-Wound culture at admission on 01/11/2025: Grew Staph aureus: MSSA
- Continue to cefazolin
- Continue oral metronidazole
- Pain management: Oxycodone PRN
# Type 2 diabetes mellitus
- Hemoglobin A1c:12.0--last year it was 9
- Denies neuropathy
- Tight glucose control
-Metformin hold for now
- mod ISS
-Insulin dose adjusted by diabetic CLINICAL ACADEMIC ALLERGIST
- Diabetic diet
# Hypertension
- Continue Norvasc 10 mg
- Continue losartan
# Depression
- Continue sertraline 50
#DVT prophylaxis
-heparin sq
#CODE status
-full code
Anticipated Discharge: 24 - 48 hours
Subjective/Interval History
-
Date of Service: January 14, 2025
Patient reports no complaints over the night. Reports very mild pain on surgical site.
Objective Data
-
Labs:
Laboratory Results
01/14/25
06:41
WBC 9.3
Hgb 13.7
Hct 39.2
Plt Count 327
Sodium Pending
Potassium Pending
Chloride Pending
Carbon Dioxide Pending
BUN Pending
Creatinine Pending
Glucose Pending
Calcium Pending
Total Bilirubin Pending
AST Pending
ALT Pending
Alkaline Phosphatase Pending
Vital Signs:
Vital Signs
Temp Pulse Resp BP Pulse Ox
98.1 F 49 16 120/66 97
01/13/25 23:17 01/13/25 23:17 01/13/25 23:17 01/13/25 23:17 01/13/25 23:17
I&O
01/13/25 01/14/25 01/15/25
06:59 06:59 06:59
Intake Total 480 / 480
Balance 480 / 480
Review of Systems
-
History Source: Patient
All other systems: Reviewed and negative
Physical Exam
-
General: Well Developed, Well Nourished, No Apparent Distress and Comfortable
HEENT: Normocephalic and Atraumatic
Respiratory: Clear to Auscultation
Cardiac: Regular Rhythm and S1/S2
GI: Soft, Nontender and Nondistended
Musculoskeletal: No Clubbing, No Cyanosis, No Edema and Other (bandage on the left foot )
Skin: Warm
Neuro: Awake, Alert, Oriented and AO x 3
Psych: Calm
[2025-01-14 07:36] LABS: ALT (SGPT) 15 U/L (0-35); AST (SGOT) 17 U/L (14-36); Albumin 3.6 g/dl (3.5-5.0); Alkaline Phosphatase 94 U/L (38-126); Blood Urea Nitrogen 15 mg/dl (7-17); Calcium 8.8 mg/dl (8.4-10.2); Carbon Dioxide 24 mmol/L (22-30); Chloride 105 mmol/L (98-107); Estimated Creatinine Clearance 120 ml/min; Glucose 226 mg/dl (70-99); Potassium 4.2 mmol/L (3.5-5.1); Sodium 136 mmol/L (135-145); Total Bilirubin 0.4 mg/dl (0.2-1.3); Total Protein 7.6 g/dl (6.3-8.2); eGFR > 60.00
[2025-01-14 07:51] VITALS: BP 140/86
[2025-01-14 08:59] LABS: Glucose - Point of Care 216 mg/dl (70-99)
[2025-01-14] MEDS: COZAAR 50 MG PO (09:12)
[2025-01-14] MEDS: FLAGYL 500 MG PO ×3 (09:12→21:23)
[2025-01-14] MEDS: NORVASC 10 MG PO (09:12)
[2025-01-14] MEDS: NOVOLOG FLEXPEN-MODERATE RESISTANCE 3 UNITS SC ×2 (09:12→13:29)
[2025-01-14] MEDS: ZOLOFT 50 MG PO (09:12)
[2025-01-14] MEDS: HEPARIN 5000 UNITS SC ×2 (09:12→21:23)
[2025-01-14] MEDS: NOVOLOG FLEXPEN 6 UNITS SC (09:13)
[2025-01-14] MEDS: TYLENOL 650 MG PO ×3 (09:18→22:31)
--- NOTE | 2025-01-14 10:27 | PN.DE.MGMTRT ---
Insulin Management
- -
01/15/2024: Diabetes Management Follow up
44 year old female with PMH: HTN, Depression and T2DM, presented to the ER with her right toe ulcer and oozing from that area. Her toe x-ray showed severe darrick erosive change/lucency within the distal phalanx tuft of the great toe, concerning for
osteomyelitis. Now s/p right open hallux amputation with a plan for return to the OR on 01/14 for closure. Diabetes team consulted to assist with management of hyperglycemia. States she was initially dx with T2DM 2 years ago. Has been taking
Metformin 1000mg BID prior to admission. A1C 12.0%, reports it was 9 last year but she gave up on herself taking care of her Dtr who was dealing with ulcerative colitis. Cr 0.5, eGFR >60.
Pt awake, alert, oriented, sitting up in bed, offers no complaints, able to discuss diabetes care plan.
Was started on AC NovoLog yesterday, premeal glucose remained elevated 212 to 255, requiring 3-5 units of additional corrective insulin with meals.
Received Lantus 18 units @ HS, FBG 226 V, 216 POC.
will increase AC NovoLog to 10 units and Lantus to 20 units. Cont moderate corrective with meals
Metformin will remain on hold for now in anticipation for upcoming surgery.
Discussed with pt current A1C and emphasized importance of optimal glucose control for wound healing and to avoid further diabetes related complications.
Will con to follow and make further insulin dose adjustments if necessary
Diabetes History
- -
Type of Diabetes: 2 requiring insulin
Pre-Admission Diabetes Regimen
01/14/25
06:41
Creatinine 0.5 L
Lab Results
Hemoglobin A1c 12.0 % (4.0-5.6) H 01/12/25 07:42
Insulin Pump Settings
IP Diabetes Regimen
01/13/25 01/13/25 01/13/25
12:06 17:15 21:23
Glucose
POC Glucose 212 H 255 H 282 H
01/14/25 01/14/25
06:41 08:48
Glucose 226 H
POC Glucose 216 H
Meal type: Dinner
Amount consumed: 100%
Patient Education
--- NOTE | 2025-01-14 11:57 | W.PN.ID1 ---
Date of Service
Date of Service: January 14, 2025
Today's Communication
Continue metronidazole and cefazolin.
Assessment / Plan
# Distal Right great toe osteo
# Diabetic ulcer
- 01/12/25 s/p open toe amp.
- OR cx MSSA, Group F strep,
Bone path pending
- Continue cefazolin and metronidazole.
- For wound closure 01/15, per podiatry
- Recommend tight glucose control.
Chief Complaint
-: Other (Osteo)
Subjective / Review of Systems
No complaints.
Vital Signs / Physical Exam
Vital Signs
Vital Signs
Temp Pulse Resp BP Pulse Ox
98.0 F 60 14 140/86 98
01/14/25 07:51 01/14/25 09:12 01/14/25 07:51 01/14/25 09:12 01/14/25 07:51
Physical Exam
Constitutional: No Acute Distress and Comfortable
Pulmonary: Clear
Gastrointestinal: Soft, Non Tender and Non Distended
Wound: Other (right foot dressing dry)
Objective Data
Lab Data
Lab Results
01/14/25 06:41
01/14/25 06:41
ESR 34 mm/hour (0-20) H 01/11/25 12:33
Estimated Creat Clear 120 ml/min 01/14/25 06:41
Total Bilirubin 0.4 mg/dl (0.2-1.3) 01/14/25 06:41
AST 17 U/L (14-36) 01/14/25 06:41
ALT 15 U/L (0-35) 01/14/25 06:41
Alkaline Phosphatase 94 U/L (38-126) 01/14/25 06:41
C-Reactive Protein 26.70 mg/L (0.0-10.00) H 01/11/25 12:33
Most recent labs reviewed.
Micro Results:
01/12/25 13:50 Wound Culture - Preliminary
Toe Staphylococcus aureus
Group F Streptococcus
Gram Stain - Preliminary
01/12/25 13:50 Anaerobic Culture - Preliminary
Toe Culture pending. Anaerobic cultures are examined after 3
days incubation. Additional information to follow.
01/11/25 12:33 Wound Culture - Final
Toe S aureus-Methicillin Sensitive
Coagulase neg. staphylococcus
Group F Streptococcus
Gram Stain - Final
01/11/25 21:33 MRSA Screen - Final
Nose No Methicillin Resistant Staphylococcus aureus isolated.
01/11/25 Toe XRAY: There is severe darrick erosive change/lucency within the distal phalanx tuft of the great toe, in keeping with osteomyelitis. Overlying soft tissue swelling.
01/12/25 MRI: Darrick osteomyelitis throughout the great toe distal phalanx. Reactive osteitis of the proximal phalanx. Surrounding subcutaneous edema without abscess. Cannot rule out early septic arthritis of the interphalangeal joint.
[2025-01-14 12:49] LABS: Glucose - Point of Care 227 mg/dl (70-99)
--- NOTE | 2025-01-14 13:12 | W.PN.UPDATE ---
Update Note
Progress Note Update
I saw and evaluated the patient. I reviewed the resident�s note and agree with findings and plan as documented in the resident�s note.
1. Diabetic foot infection/right toe osteomyelitis -initially started as some nail issues which was removed by rehabilitation construction specialist in office. X-ray at admission showing some bone erosion. MRI foot confirmed finding of great toe distal phalanx
osteomyelitis. Patient underwent partial toe amputation by podiatry. Intraoperative wound culture growing Staphylococcus aureus/grew Peptostreptococcus. Currently being maintained on Ancef/Flagyl.
2. Uncontrolled type 2 diabetes -patient already on metformin with hemoglobin A1c of 9 in the past. Currently hemoglobin of 12 this visit. Discussed need of insulin and better blood glucose control to avoid further issues with diabetic foot
infection or further diabetic micro-vascular complication. Patient is agreeable. Will consult diabetic nurse practitioner to help. Patient being educated on how to give insulin to herself.
Patient plan to go for closure of right foot incision by podiatry tomorrow. Possible discharge afterward if cleared by podiatry.
[2025-01-14] MEDS: NOVOLOG FLEXPEN 10 UNITS SC ×2 (13:27→18:09)
[2025-01-14 15:57] VITALS: BP 140/77
--- NOTE | 2025-01-14 16:10 | W.PN.SURGUPD ---
Surgical Update
Surgical Update
44 yo F s/p partial hallux open amputation
-Plans for delayed primary closure tomorrow 01/15
-Please keep NPO after midnight
-DOS labs: CBC/BMP
--- NOTE | 2025-01-14 16:17 | CM ---
Patient seen at bedside
states she is for the OR tomorrow
discussed that CM following for needs
PLAN: home with possible IV abx/VN needs.
[2025-01-14] MEDS: NOVOLOG FLEXPEN-MODERATE RESISTANCE SC (17:44)
[2025-01-14 17:53] LABS: Glucose - Point of Care 140 mg/dl (70-99)
[2025-01-14 21:53] LABS: Glucose - Point of Care 182 mg/dl (70-99)
[2025-01-14] MEDS: LANTUS 0.1 UNITS SC (22:35)
[2025-01-14 23:12] VITALS: BP 128/75
[2025-01-15] VITALS (8 sets, daily range): BP systolic 107–148; BP diastolic 69–90
[2025-01-15] MEDS: ANCEF 10 IV ×3 (05:42→21:14)
--- NOTE | 2025-01-15 05:45 | W.PN.HOSP.TC ---
Addendum entered and electronically signed by Ed Pa MD 01/15/25 14:31:
I saw and evaluated the patient. I reviewed the resident�s note and agree with findings and plan as documented in the resident�s note.
1. Diabetic foot infection/right toe osteomyelitis -initially started as some nail issues which was removed by lens and frames prescription clerk in office. X-ray at admission showing some bone erosion. MRI foot confirmed finding of great toe distal phalanx
osteomyelitis. Patient underwent partial toe amputation by podiatry. Intraoperative wound culture growing Staphylococcus aureus/grew Peptostreptococcus. Patient has been taken off of flagyl. at discharge ID recommend patient to be maintained on
Keflex for 10-14 days. Patient going for wound closure operation today.
2. Uncontrolled type 2 diabetes -patient already on metformin with hemoglobin A1c of 9 in the past. Currently hemoglobin of 12 this visit. Discussed need of insulin and better blood glucose control to avoid further issues with diabetic foot
infection or further diabetic micro-vascular complication. Patient is agreeable. Diabetic FRENCH FOLDING MACHINE OPERATOR following. Patient being educated on how to give insulin to herself. Currently on regimen of Lantus 20 units at bedtime and 10 unit AC
.
Original Note:
Today's Communication/Plan
-
-OR scheduled today to close the surgery site
-The patient was kept NPO since the midnight
Assessment / Plan
Assessment / Plan
Patient is a 44-year-old female with a past medical history of type 2 diabetes mellitus, hypertension and depression. The patient presented to the ER with her right toe ulcer and oozing from that area. Her toe x-ray showed severe darrick erosive
change/lucency within the distal phalanx tuft of the great toe, in keeping with osteomyelitis. Overlying soft tissue swelling. She was seen by podiatry, wound care team, infectious disease and diabetic nurse practitioner.
# Right toe septic arthritis complicated with osteomyelitis
- Toe x-ray: There is severe darrick erosive change/lucency within the distal phalanx tuft of the great toe, in keeping with osteomyelitis. Overlying soft tissue swelling.
- Toe MRI:Darrick osteomyelitis throughout the great toe distal phalanx. Reactive osteitis of the proximal phalanx. Surrounding subcutaneous edema without abscess. Cannot rule out early septic arthritis of the interphalangeal joint.
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
-Anaerobic wound culture at surgery is pendin01/12/2025--- wound culture grew out Staphylococcus aureus and group F Streptococcus
-Wound culture at admission on 01/11/2025: Grew Staph aureus: MSSA
- Continue to cefazolin
- Continue oral metronidazole
- Pain management: Oxycodone PRN
# Type 2 diabetes mellitus
-Hemoglobin A1c:12.0--last year it was 9
-Denies neuropathy/ No sensation deficit on PE
-Monitor glucose levels
-Metformin hold for now
-Moderte ISS
-Insulin dose adjusted by diabetic FRENCH FOLDING MACHINE OPERATOR
-Diabetic diet
# Hypertension
- Continue Norvasc 10 mg
- Continue losartan
# Depression
- Continue sertraline 50
#DVT prophylaxis
-heparin sq
#CODE status
-full code
Anticipated Discharge: 24 - 48 hours
Subjective/Interval History
-
Date of Service: January 15, 2025
The patient reports no complaints this morning.
Reports very mild pain on surgical site on the left foot.
Objective Data
-
Labs:
Laboratory Results
01/15/25
06:00
WBC Pending
Hgb Pending
Hct Pending
Plt Count Pending
Sodium Pending
Potassium Pending
Chloride Pending
Carbon Dioxide Pending
BUN Pending
Creatinine Pending
Glucose Pending
Calcium Pending
Total Bilirubin Pending
AST Pending
ALT Pending
Alkaline Phosphatase Pending
Vital Signs:
Vital Signs
Temp Pulse Resp BP Pulse Ox
98.1 F 52 18 128/75 96
01/14/25 23:12 01/14/25 23:12 01/14/25 23:12 01/14/25 23:12 01/14/25 23:12
I&O
01/13/25 01/14/25 01/15/25
06:59 06:59 06:59
Intake Total 480 / 480 960 / 960
Balance 480 / 480 960 / 960
Review of Systems
-
History Source: Patient
All other systems: Reviewed and negative
Physical Exam
-
General: Well Developed, Well Nourished, Comfortable and Conversant
HEENT: Normocephalic and Atraumatic
Respiratory: Clear to Auscultation
Cardiac: Regular Rhythm and S1/S2
GI: Soft, Nontender and Nondistended
Musculoskeletal: No Clubbing, No Cyanosis, No Edema and Other (left foot in bandage )
Skin: Warm
Neuro: Awake, Alert, Oriented and AO x 3
[2025-01-15 06:01] LABS: Glucose - Point of Care 249 mg/dl (70-99)
[2025-01-15] MEDS: NOVOLOG FLEXPEN-MODERATE RESISTANCE 3 UNITS SC (06:18)
--- NOTE | 2025-01-15 06:27 | PTCARENOTE ---
CHG bath completed, linens and gown changed. Pt NPO since MN
[2025-01-15 07:45] LABS: Hematocrit 40.1 % (37.0-47.0); Mean Corp Hgb Conc. 34.9 g/dL (33.0-37.0); Mean Corpuscular Hgb 32.2 pg (27.0-31.0); Mean Corpuscular Volume 92.2 fL (81.0-99.0); Mean Platelet Volume 8.8 fL (7.4-10.4); Platelet Count 316 10^3/uL (130-400); Red Blood Cell Count 4.35 10^6/uL (4.20-5.40); Red Cell Dist. Width 12.4 % (11.5-14.5); White Blood Cell Count 8.6 10^3/uL (4.8-10.8)
[2025-01-15] MEDS: NOVOLOG FLEXPEN SC ×2 (08:06→11:40)
[2025-01-15] MEDS: COZAAR 50 MG PO (08:07)
[2025-01-15] MEDS: ZOLOFT 50 MG PO (08:07)
[2025-01-15] MEDS: FLAGYL 500 MG PO (08:07)
[2025-01-15] MEDS: NORVASC 10 MG PO (08:07)
[2025-01-15] MEDS: HEPARIN 5000 UNITS SC ×2 (08:07→21:14)
[2025-01-15 08:16] LABS: ALT (SGPT) 18 U/L (0-35); AST (SGOT) 23 U/L (14-36); Albumin 3.6 g/dl (3.5-5.0); Alkaline Phosphatase 86 U/L (38-126); Blood Urea Nitrogen 12 mg/dl (7-17); Carbon Dioxide 26 mmol/L (22-30); Chloride 105 mmol/L (98-107); Estimated Creatinine Clearance 120 ml/min; Glucose 234 mg/dl (70-99); Potassium 4.2 mmol/L (3.5-5.1); Sodium 136 mmol/L (135-145); Total Bilirubin 0.4 mg/dl (0.2-1.3); Total Protein 7.6 g/dl (6.3-8.2); eGFR > 60.00
--- NOTE | 2025-01-15 08:20 | PN.DE.MGMTRT ---
Insulin Management
- -
01/16/2024: Diabetes Management Follow up
44 year old female with PMH: HTN, Depression and T2DM, presented to the ER with her right toe ulcer and oozing from that area. Her toe x-ray showed severe darrick erosive change/lucency within the distal phalanx tuft of the great toe, concerning for
osteomyelitis. Now s/p right open hallux amputation with a plan for return to the OR on 01/14 for closure. Diabetes team consulted to assist with management of hyperglycemia. States she was initially dx with T2DM 2 years ago. Has been taking
Metformin 1000mg BID prior to admission. A1C 12.0%, reports it was 9 last year but she gave up on herself taking care of her Dtr who was dealing with ulcerative colitis. Cr 0.5, eGFR >60.
Pt awake, alert, oriented, resting in bed, offers no complaints, able to discuss diabetes care plan.
Pt was NPO after MN for OR today. Received reduced dose of 10 units Lantus last night, FBG 234 V, 249 POC.
01/14 Premeal glucose was 140 to 227, received 3 units additional corrective insulin with meals.
Will increase NovoLog to 22 units and cont same dose of Lantus 20 units @ HS. Cont moderate corrective with meals
Metformin will remain on hold for now until all surgical procedures are completed.
Discussed with pt current A1C and emphasized importance of optimal glucose control for wound healing and to avoid further diabetes related complications.
Will con to follow and make further insulin dose adjustments if necessary.
Pt will be seen by the Diabetes RN Educator for insulin instructions.
Diabetes History
- -
Type of Diabetes: 2 requiring insulin
Pre-Admission Diabetes Regimen
01/15/25
07:30
Creatinine 0.5 L
Lab Results
Hemoglobin A1c 12.0 % (4.0-5.6) H 01/12/25 07:42
Insulin Pump Settings
IP Diabetes Regimen
01/14/25 01/14/25 01/14/25
08:48 12:38 17:42
Glucose
POC Glucose 216 H 227 H 140 H
01/14/25 01/15/25 01/15/25
21:41 05:49 07:30
Glucose 234 H
POC Glucose 182 H 249 H
Meal type: Lunch
Meal type: Breakfast
Amount consumed: 100%
Amount consumed: 100%
Patient Education
--- NOTE | 2025-01-15 09:50 | W.PN.ID1 ---
Date of Service
Date of Service: January 15, 2025
Today's Communication
Continue cefazolin.
Assessment / Plan
# Distal Right great toe osteo
# Diabetic ulcer
- 01/12/25 s/p open toe amp.
- OR cx MSSA, Group F strep,
Bone path pending
- For wound closure 01/15 today
- DC metronidazole
- Continue cefazolin.
- At time of discharge, transition to cephalexin 500mg po qid x 10 - 14 for cellulitis.
- Recommend tight glucose control.
Chief Complaint
-: Other (Osteo)
Subjective / Review of Systems
Going back to OR at noon. No complaints.
Vital Signs / Physical Exam
Vital Signs
Vital Signs
Temp Pulse Resp BP Pulse Ox
98.2 F 57 16 119/74 97
01/15/25 07:29 01/15/25 07:29 01/15/25 07:29 01/15/25 07:29 01/15/25 07:29
Physical Exam
Constitutional: No Acute Distress and Comfortable
Pulmonary: Clear
Gastrointestinal: Soft, Non Tender and Non Distended
Wound: Other (right foot dressing dry)
Objective Data
Lab Data
Lab Results
01/15/25 07:30
01/15/25 07:30
ESR 34 mm/hour (0-20) H 01/11/25 12:33
Estimated Creat Clear 120 ml/min 01/15/25 07:30
Total Bilirubin 0.4 mg/dl (0.2-1.3) 01/15/25 07:30
AST 23 U/L (14-36) 01/15/25 07:30
ALT 18 U/L (0-35) 01/15/25 07:30
Alkaline Phosphatase 86 U/L (38-126) 01/15/25 07:30
C-Reactive Protein 26.70 mg/L (0.0-10.00) H 01/11/25 12:33
Most recent labs reviewed.
Micro Results:
01/12/25 13:50 Wound Culture - Preliminary
Toe Staphylococcus aureus
Group F Streptococcus
Gram Stain - Preliminary
01/12/25 13:50 Anaerobic Culture - Preliminary
Toe Culture pending. Anaerobic cultures are examined after 3
days incubation. Additional information to follow.
01/11/25 12:33 Wound Culture - Final
Toe S aureus-Methicillin Sensitive
Coagulase neg. staphylococcus
Group F Streptococcus
Gram Stain - Final
01/11/25 21:33 MRSA Screen - Final
Nose No Methicillin Resistant Staphylococcus aureus isolated.
01/11/25 Toe XRAY: There is severe darrick erosive change/lucency within the distal phalanx tuft of the great toe, in keeping with osteomyelitis. Overlying soft tissue swelling.
01/12/25 MRI: Darrick osteomyelitis throughout the great toe distal phalanx. Reactive osteitis of the proximal phalanx. Surrounding subcutaneous edema without abscess. Cannot rule out early septic arthritis of the interphalangeal joint.
[2025-01-15 11:44] LABS: Glucose - Point of Care 206 mg/dl (70-99)
--- NOTE | 2025-01-15 12:02 | CM ---
Addendum entered by Maday Morocho 01/15/25 16:18:
Patient seen at bedside. Patient states she does not anticipate any VN or IV antibiotic needs at this time and will have a ride home. CM will continue to follow for discharge planning needs.
Original Note:
Patient out of room in 1A to OR at this time. CM will continue to follow for discharge planning needs.
PLAN: home with possible IV abx/VN need
--- NOTE | 2025-01-15 12:59 | W.PN.SURGUPD ---
Surgical Update
Surgical Update
44 yo F s/p right hallux revision amputation with delayed primary closure
-Dressings to remain C/D/I
-Antibiotics for 7 days per ID recs
-Post washout culture obtained
-Heel WBAT to RLE in surgical shoe
-Follow up at [facility] in 2 weeks
[2025-01-15 13:09] LABS: Glucose - Point of Care 179 mg/dl (70-99)
[2025-01-15] MEDS: NOVOLOG FLEXPEN-MODERATE RESISTANCE SC (13:37)
--- NOTE | 2025-01-15 15:20 | PTCARENOTE ---
Pt returned from OR. No complications reported. Pt alert/pleasant/conversive. Post-op dressing clean/dry/intact. Pt has good posterior tibial pulse, good sensation, moving toes of R foot.
[2025-01-15] MEDS: NOVOLOG FLEXPEN-MODERATE RESISTANCE 5 UNITS SC (17:44)
[2025-01-15] MEDS: NOVOLOG FLEXPEN 10 UNITS SC (17:44)
[2025-01-15 17:54] LABS: Glucose - Point of Care 260 mg/dl (70-99)
[2025-01-15] MEDS: TYLENOL 650 MG PO ×2 (18:22→22:18)
[2025-01-15] MEDS: LANTUS 0.2 UNITS SC (21:15)
[2025-01-15 21:29] LABS: Glucose - Point of Care 196 mg/dl (70-99)
[2025-01-16 03:30] VITALS: BP 130/83
[2025-01-16] MEDS: ANCEF 10 IV ×2 (05:18→13:04)
[2025-01-16] MEDS: FLUSH (NSS) 2 FLUSH IV (05:18)
[2025-01-16] MEDS: TYLENOL 650 MG PO (05:23)
[2025-01-16 07:12] LABS: Glucose - Point of Care 216 mg/dl (70-99)
[2025-01-16 07:29] VITALS: BP 122/83
[2025-01-16] MEDS: ZOLOFT 50 MG PO (07:38)
[2025-01-16] MEDS: NORVASC 10 MG PO (07:38)
[2025-01-16] MEDS: COZAAR 50 MG PO (07:38)
[2025-01-16] MEDS: NOVOLOG FLEXPEN 10 UNITS SC (07:38)
[2025-01-16] MEDS: HEPARIN 5000 UNITS SC (07:38)
[2025-01-16] MEDS: NOVOLOG FLEXPEN-MODERATE RESISTANCE 3 UNITS SC ×2 (07:39→12:30)
--- NOTE | 2025-01-16 07:57 | PN.DE.MGMTRT ---
Insulin Management
- -
01/17/2024: Diabetes Management Follow up
44 year old female with PMH: HTN, Depression and T2DM, presented to the ER with her right toe ulcer and oozing from that area. Her toe x-ray showed severe darrick erosive change/lucency within the distal phalanx tuft of the great toe, concerning for
osteomyelitis. Now s/p right open hallux amputation with a plan for return to the OR on 01/14 for closure. Diabetes team consulted to assist with management of hyperglycemia. States she was initially dx with T2DM 2 years ago. Has been taking
Metformin 1000mg BID prior to admission. A1C 12.0%, reports it was 9 last year but she gave up on herself taking care of her Dtr who was dealing with ulcerative colitis. Cr 0.5, eGFR >60.
Pt awake, alert, oriented, resting in bed, offers no complaints, able to discuss diabetes care plan.
POD # 1 s/p right hallux revision amputation with delayed primary closure
. Doing well. 01/15 Premeal glucose remained elevated, 179 to 260, received 3-5 units additional corrective insulin with meals.
Will resume [id number] mg BID. Increase NovoLog to 14 units and Lantus to 22 units @ HS. Cont moderate corrective with meals
Meds at Discharge: [id number] mg BID. NovoLog 12 units AC and Lantus 22 units @ HS
Discussed with pt current A1C and emphasized importance of optimal glucose control for wound healing and to avoid further diabetes related complications.
Will con to follow and make further insulin dose adjustments if necessary.
Pt will be seen by the Diabetes RN Educator for insulin instructions.
Diabetes History
- -
Type of Diabetes: 2 requiring insulin
Pre-Admission Diabetes Regimen
01/15/25
07:30
Creatinine 0.5 L
Lab Results
Hemoglobin A1c 12.0 % (4.0-5.6) H 01/12/25 07:42
Insulin Pump Settings
IP Diabetes Regimen
01/15/25 01/15/25 01/15/25
07:30 11:33 13:08
Glucose 234 H
POC Glucose 206 H 179 H
01/15/25 01/15/25 01/16/25
17:43 21:18 07:01
Glucose
POC Glucose 260 H 196 H 216 H
Meal type: Lunch
Meal type: Breakfast
Amount consumed: 100%
Patient Education
--- NOTE | 2025-01-16 08:04 | W.PN.HOSP.TC ---
Today's Communication/Plan
-
-Discharge plan
Assessment / Plan
Assessment / Plan
Patient is a 44-year-old female with a past medical history of type 2 diabetes mellitus, hypertension and depression. The patient presented to the ER with her right toe ulcer and oozing from that area. Her toe x-ray showed severe darrick erosive
change/lucency within the distal phalanx tuft of the great toe, in keeping with osteomyelitis. Overlying soft tissue swelling. She was seen by podiatry, wound care team, infectious disease and diabetic nurse practitioner.
# Right toe septic arthritis complicated with osteomyelitis
-s/p debridement and delayed closure on 01/15
- Toe x-ray: There is severe darrick erosive change/lucency within the distal phalanx tuft of the great toe, in keeping with osteomyelitis. Overlying soft tissue swelling.
- Toe MRI:Darrick osteomyelitis throughout the great toe distal phalanx. Reactive osteitis of the proximal phalanx. Surrounding subcutaneous edema without abscess. Cannot rule out early septic arthritis of the interphalangeal joint.
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
-Anaerobic wound culture at surgery is pendin01/12/2025
-Wound culture from Second surgery for closing on 01/15/25- pending
-wound culture from 01/12/25 grew out Staphylococcus aureus and group F Streptococcus
-Wound culture at admission on 01/11/2025: Grew Staph aureus: MSSA
-ID on board: recommending Continue to cefazolin with a plan transition to transition to cephalexin 500mg po qid x 10 - 14 days for cellulitis at discharge
- Pain management: Oxycodone PRN
# Type 2 diabetes mellitus
-Hemoglobin A1c:12.0--last year it was 9
-Denies neuropathy/ No sensation deficit on PE
-Monitor glucose levels
-Metformin hold for now
-Moderate ISS
-Insulin dose adjusted by diabetic GLUING MACHINE OPERATOR
-Diabetic education and insulin use education was provided
-Diabetic diet
# Hypertension
- Continue Norvasc 10 mg
- Continue losartan
# Depression
- Continue sertraline 50
#DVT prophylaxis
-heparin sq
#CODE status
-full code
Anticipated Discharge: Today
Subjective/Interval History
-
Date of Service: January 16, 2025
Patient reports no complaints. Reports very mild pain on surgical site.
Objective Data
-
Labs:
Laboratory Results
01/16/25
07:05
Sodium Pending
Potassium Pending
Chloride Pending
Carbon Dioxide Pending
BUN Pending
Creatinine Pending
Glucose Pending
Calcium Pending
Total Bilirubin Pending
AST Pending
ALT Pending
Alkaline Phosphatase Pending
Vital Signs:
Vital Signs
Temp Pulse Resp BP Pulse Ox
98.2 F 57 16 122/83 96
01/16/25 07:29 01/16/25 07:38 01/16/25 07:29 01/16/25 07:38 01/16/25 07:29
I&O
01/15/25 01/16/25 01/17/25
06:59 06:59 06:59
Intake Total 960 / 960 1564 / 1564
Balance 960 / 960 1564 / 1564
Review of Systems
-
History Source: Patient
Constitutional: Reports No Symptoms
Musculoskeletal: Reports Other (See HPI)
Physical Exam
-
General: Well Developed, Well Nourished and No Apparent Distress
HEENT: Normocephalic and Atraumatic
Respiratory: Clear to Auscultation
Cardiac: Regular Rhythm and S1/S2
GI: Soft, Nontender and Nondistended
Musculoskeletal: No Clubbing, No Cyanosis, No Edema and Other (Left foot in bandage )
Skin: Warm
Neuro: Awake, Alert and Oriented
Psych: Calm
[2025-01-16 08:11] LABS: ALT (SGPT) 21 U/L (0-35); AST (SGOT) 25 U/L (14-36); Albumin 3.6 g/dl (3.5-5.0); Alkaline Phosphatase 88 U/L (38-126); Blood Urea Nitrogen 10 mg/dl (7-17); Carbon Dioxide 26 mmol/L (22-30); Chloride 106 mmol/L (98-107); Estimated Creatinine Clearance 120 ml/min; Glucose 210 mg/dl (70-99); Potassium 4.4 mmol/L (3.5-5.1); Sodium 135 mmol/L (135-145); Total Bilirubin 0.4 mg/dl (0.2-1.3); Total Protein 7.7 g/dl (6.3-8.2); eGFR > 60.00
--- NOTE | 2025-01-16 09:43 | W.PN.ID1 ---
Date of Service
Date of Service: January 16, 2025
Today's Communication
- Continue cefazolin.
- At time of discharge, transition to cephalexin 500mg po qid x 10 - 14 days for cellulitis.
Assessment / Plan
# Distal Right great toe osteo
# Diabetic ulcer
- 01/12/25 s/p open toe amp.
- OR cx MSSA, Group F strep,
Bone path pending
- 01/15 s/p debridement and delayed closure.
- Continue cefazolin.
- At time of discharge, transition to cephalexin 500mg po qid x 10 - 14 days for cellulitis.
- Recommend tight glucose control.
Chief Complaint
-: Other (Osteo)
Subjective / Review of Systems
No compplaints today.
Vital Signs / Physical Exam
Vital Signs
Vital Signs
Temp Pulse Resp BP Pulse Ox
98.2 F 57 16 122/83 96
01/16/25 07:29 01/16/25 07:38 01/16/25 07:29 01/16/25 07:38 01/16/25 07:29
Physical Exam
Constitutional: No Acute Distress and Comfortable
Pulmonary: Clear
Gastrointestinal: Soft, Non Tender and Non Distended
Wound: Other (right foot dressing dry)
Objective Data
Lab Data
Lab Results
01/15/25 11:07
01/16/25 07:05
ESR 34 mm/hour (0-20) H 01/11/25 12:33
Estimated Creat Clear 120 ml/min 01/16/25 07:05
Total Bilirubin 0.4 mg/dl (0.2-1.3) 01/16/25 07:05
AST 25 U/L (14-36) 01/16/25 07:05
ALT 21 U/L (0-35) 01/16/25 07:05
Alkaline Phosphatase 88 U/L (38-126) 01/16/25 07:05
C-Reactive Protein 26.70 mg/L (0.0-10.00) H 01/11/25 12:33
Most recent labs reviewed.
Micro Results:
01/12/25 13:50 Anaerobic Culture - Preliminary
Toe Culture pending. Anaerobic cultures are examined after 3
days incubation. Additional information to follow.
01/15/25 13:00 Wound Culture - Preliminary
Foot - Right Gram Stain - Preliminary
01/15/25 13:00 Anaerobic Culture - Pending
Foot - Right
01/12/25 13:50 Wound Culture - Preliminary
Toe Staphylococcus aureus
Group F Streptococcus
Gram Stain - Preliminary
01/11/25 12:33 Wound Culture - Final
Toe S aureus-Methicillin Sensitive
Coagulase neg. staphylococcus
Group F Streptococcus
Gram Stain - Final
01/11/25 21:33 MRSA Screen - Final
Nose No Methicillin Resistant Staphylococcus aureus isolated.
01/11/25 Toe XRAY: There is severe darrick erosive change/lucency within the distal phalanx tuft of the great toe, in keeping with osteomyelitis. Overlying soft tissue swelling.
01/12/25 MRI: Darrick osteomyelitis throughout the great toe distal phalanx. Reactive osteitis of the proximal phalanx. Surrounding subcutaneous edema without abscess. Cannot rule out early septic arthritis of the interphalangeal joint.
[2025-01-16 11:42] LABS: Glucose - Point of Care 208 mg/dl (70-99)
--- NOTE | 2025-01-16 11:56 | PTCARENOTE ---
01/16/2025 DIABETES EDUCATION
I met with Kami to review diabetes management.
She has had T2D for 2 years, had R. great toe amputation secondary to picking an ingrown toenail. Her toe was red and swollen for a short amount of time, prior to inpatient stay. She was only taking Metformin and medication for HTN at home. Was
not checking glucose values, but states she knows how to use a glucose meter with no problems.
I educated on physiology of T2D, organ damage, managing with medications, monitoring BG, nutrition, activity, sleep and managing stress. I reinforced signs of hyperglycemia, hypoglycemia and hypoglycemia protocol; BS parameters and recommended HbA1c
goals. I provided written material on self managing glucose, complications, CGM. Included a glucose tracking sheet, information on a medic alert bracelet and outpatient DSME program.
I verbally provided instructions on using a glucometer.
I educated and demonstrated on insulin injection technique, timing, and storage. Discussed long and short acting insulin; onset/peak/duration, and encouraged her to administer his own injections with RN supervision while admitted. Discussed normal
target glucose ranges and a monitoring schedule 15 minutes before each meal when prescribed Novolog, and preprandial AM,
Encouraged patient to follow up with his PCP for post d/c appointment and to monitor medication and blood glucose levels. Provided list of endocrinologists if desired, to contact insurance company to verify in network status. Patient verbalized
understanding.
[2025-01-16] MEDS: NOVOLOG FLEXPEN 14 UNITS SC (12:31)
--- NOTE | 2025-01-16 12:31 | W.DCSUMMARY ---
Discharge Summary
Discharge Data
Date of Admission: 01/11/25
Date of Discharge: 01/16/25
-
Pending Results: No
Hospital Course
Disposition : Home with visiting nurse
Primary care physician : Don Last MD
Principal Discharge diagnosis : Diabetic foot infection, toe partial amputation, uncontrolled DM2
Chronic Discharge diagnosis : Hypertension, Depression
Hospital Course : Patient is a 44-year-old female with a past medical history of type 2 diabetes mellitus, hypertension and depression. The patient presented to the ER with her right toe ulcer and oozing from that area. Her toe x-ray showed
severe darrick erosive change/lucency within the distal phalanx tuft of the great toe, in keeping with osteomyelitis and her MRI finding was complaint with X-ray noted ' Darrick osteomyelitis throughout the great toe distal phalanx. Reactive osteitis of
the proximal phalanx. Surrounding subcutaneous edema without abscess. Cannot rule out early septic arthritis of the interphalangeal joint.' She was seen by podiatry, wound care team, infectious disease and diabetic nurse practitioner. She
underwent toe surgery on 01/12/25 with a Right terminal Syme's amputation with incision and drainage and had another surgery on 01/12/2025 for delayed primary closure. She was seen by infectious disease physician. She was started on antibiotics
with a plan to continue for 14 days of course with cephalexin 500 mg p.o. qid at discharge which was prescribed for patient at the discharge. The patient's blood sugar level was found elevated at admission and her hemoglobin A1c result was found 12.
The patient was consulted to diabetic nurse practitioner and started on insulin regimen. She was educated how to apply insulin and her insulin dose adjusted based on her glucose levels. She was also recommended to continue metformin. She was
recommended to see an night worker at outpatient setting and was given a list of night worker in local area. She was recommended to see her admissions assistant and an orthopedist in 2 weeks following her discharge.
Other Chronic medical problems include hypertension and depression and were stable during the hospitalization.
Important imaging findings :
05/11/25 X ray Toe(s) Min 2 Vw Right
IMPRESSION:
There is severe darrick erosive change/lucency within the distal phalanx tuft of the great toe, in keeping with osteomyelitis. Overlying soft tissue swelling.
No acute fracture or dislocation. Joint spaces are well-maintained.
Electronically signed by Pro Arias,
01/12/25 MRI of the right foot without and with gadolinium contrast performed at [address] with sagittal, coronal and axial images.
IMPRESSION:
Darrick osteomyelitis throughout the great toe distal phalanx. Reactive osteitis of the proximal phalanx. Surrounding subcutaneous edema without abscess. Cannot rule out early septic arthritis of the interphalangeal joint.
Procedure findings :
DATE OF OPERATION: 01/12/2025
SURGEON: Rodney Sarabia DPM
DICTATED BY: Rodney Sarabia DPM
DIRECTOR OF PHYSICAL EDUCATION: Param Barrett DPM and Waylon Bedoya DPM
PREOPERATIVE DIAGNOSIS: Right foot hallux infection.
POSTOPERATIVE DIAGNOSIS: Right hallux infection with osteomyelitis
and septic arthritis.
PATHOLOGY: Right partial hallux.
PROCEDURE PERFORMED: Right terminal Syme's amputation with
incision and drainage of septic arthritis.
ANESTHESIA: General anesthesia via LMA.
HEMOSTASIS: Anatomic dissection.
ESTIMATED BLOOD LOSS: Minimal.
MATERIALS USED: 3-0 Prolene.
INJECTABLES: 10 mL 0.5% Marcaine plain.
COMPLICATIONS: No apparent complications.
INDICATION FOR PROCEDURE: The patient presented to the emergency
department on 01/11 with intractable infection and radiographic
evidence of osteomyelitis. After recent infection failed oral
antibiotics, she was seen by an outpatient admissions assistant where she had
a toenail avulsion performed and presented to the ER with worsening
infection. We reviewed pre, niranjan, postprocedure protocols. Second
opinion was offered and declined.
DESCRIPTION OF PROCEDURE: She was brought to the operating room
for right hallux amputation and source control. She was induced via
general anesthesia via LMA, prepped and draped in normal sterile
fashion. Attention was drawn to the distal phalanx where a racquet
type incision was made. Terminal Syme's amputation was completed,
and septic arthritis washout was completed with copious amounts of
normal sterile saline. Cultures were taken, and the wound was left
packed open, and patient will return to the OR on 01/15 for delayed
primary closure, allowing the wound to drain. She left the surgical
suite fully informed.

Rodney Sarabia DPM
DATE OF OPERATION: 01/15/2025
SURGEON: Rodney Sarabia DPM
DICTATED BY: Rodney Sarabia DPM
DIRECTOR OF PHYSICAL EDUCATION: Param Barrett DPM
PREOPERATIVE DIAGNOSIS: Right foot infection.
POSTOPERATIVE DIAGNOSIS: Right foot infection.
PATHOLOGY: Right partial hallux.
PROCEDURE PERFORMED: Incision bone cortex, right foot, with
delayed primary closure.
ANESTHESIA: Monitored anesthesia care.
HEMOSTASIS: Anatomic dissection.
ESTIMATED BLOOD LOSS: Minimal.
MATERIALS USED: 3-0 Vicryl, 3-0 Prolene.
INJECTABLES: 10 mL 0.5% Marcaine plain.
COMPLICATIONS: No apparent complications.
INDICATION FOR PROCEDURE: Patient presented to the emergency room
with osteomyelitis and failed oral antibiotics. She earlier in the
week had a partial hallux amputation for source control and has
been on IV antibiotics. She returned to the OR for washout and
closure on today's visit. Incision bone cortex with removal of
proximal phalanx head was performed and washout with copious
amounts of normal sterile saline. Cultures and pathology specimens
were sent. There was presumed surgical cure of osteomyelitis, and
the wound was flushed and closed in layers for complex delayed
primary closure.
Patient tolerated procedure well with no apparent complications.
She will be partial weightbearing for two weeks. Follow up in the
office in two weeks' time for incision check. She left the hospital
fully informed.

Rodney Sarabia DPM
Discharge Plan
-
Patient Disposition: Home with Home Care
Discharge Diagnosis/Procedures: Diabetic foot infection, toe partial amputation, uncontrolled DM2
Condition: Fair
Diet: Diabetic, Carb Controlled
Activity: As tolerated
Additional Activity: Heel weight bearing on the left foot with surgical shoe
Driving Restrictions: No driving until cleared by podiatry
Bathing Restrictions: OK to Shower
Other Services: VN
Referrals:
Don Last MD [Family Provider] - in one week
Rodney Sarabia DPM [Active] - in one to two weeks
Prescriptions:
New
insulin aspart U-100 [Novolog FlexPen U-100 Insulin] 100 unit/mL (3 mL) Insulin Pen
12 unit SC AC Qty: 5 0RF
Rx Instructions:
Take 12 units berfore each meal
insulin glargine [Lantus Solostar U-100 Insulin] 100 unit/mL (3 mL) Insulin Pen
22 unit SC DAILY Qty: 5 0RF
Rx Instructions:
TAKE 22 UNITS DAILY AT BEDTIME
(DME) blood-glucose meter [Contour Next One Meter] Misc
Qty: 1 0RF
Rx Instructions:
Pt testing 4 times a day
(DME) Contour Next Test Strips Strip
Qty: 200 0RF
Rx Instructions:
Pt testing 4 times a day
(DME) lancets [Microlet Lancet] Misc
Qty: 200 0RF
Rx Instructions:
Pt testing 4 times a day
cephalexin 500 mg capsule
500 mg PO QID 10 Days Qty: 40 0RF
(DME) blood-glucose meter [OneTouch Verio Flex meter] Misc
Qty: 1 0RF
Rx Instructions:
As Directed
(DME) OneTouch Verio test strips Strip
Qty: 200 0RF
Rx Instructions:
Pt testing 4 times a day.
(DME) pen needle, diabetic [Lesley 2nd Gen Pen Needle] 32 gauge x 5/32' Needle
Qty: 200 0RF
Rx Instructions:
pt taking insulin 4 times a day
(DME) lancets [OneTouch Delica Plus Lancet] 30 gauge Misc
Qty: 200 0RF
Rx Instructions:
Pt testing 4 times a day
insulin lispro [Humalog KwikPen Insulin] 100 unit/mL Insulin Pen
12 unit SC AC Qty: 5 0RF
Rx Instructions:
Taek 12 units with each meal
Continued
losartan 50 mg Tablet
50 mg PO DAILY
amlodipine [Norvasc] 10 mg Tablet
10 mg PO DAILY
sertraline 50 mg Tablet
50 mg PO DAILY
metformin 1,000 mg Tablet
1,000 mg PO BIDWMEAL Qty: 60 0RF
Discharge Orders:
Discharge Patient (As Directed); Ordered 01/16/25
Ordered By: Ed Pa
Discharge Date and Time
Discharge Date/Time: 01/16/25 13:30
Print Language: FRISIAN
[2025-01-16 13:22] VITALS: BP 153/98
--- NOTE | 2025-01-16 13:50 | CM ---
Patient has been medically cleared for discharge to home with [facility] RN services. Family will transport home.
== END 2025-01-16 13:30 | disposition home health service (06) | DRG 617 ==
LOC: 1 ACUTE 15:07
PROVIDERS: Physician Assistant; Registered Nurse; Student in an Organized Health Care Education/Training Program; ADMITTING PHYSICIAN Internal Medicine; ATTENDING PHYSICIAN Hospitalist; CONSULT PHYSICIAN Student in an Organized Health Care Education/Training Program; EMERGENCY PHYSICIAN Emergency Medicine; FAMILY PHYSICIAN Family Medicine; OTHER PHYSICIAN Internal Medicine Infectious Disease
PROC: 0Y6P0Z3 Detachment at Right 1st Toe, Low, Open Approach (ICD-10-PCS; 2025-01-12)
PROC: 0QBQ0ZZ Excision of Right Toe Phalanx, Open Approach (ICD-10-PCS; 2025-01-15)
DX: E11.69 Type 2 diabetes mellitus with other specified complication (principal); M00.071 Staphylococcal arthritis, right ankle and foot; M86.171 Other acute osteomyelitis, right ankle and foot; E11.621 Type 2 diabetes mellitus with foot ulcer; F17.200 Nicotine dependence, unspecified, uncomplicated; E11.628 Type 2 diabetes mellitus with other skin complications; E11.65 Type 2 diabetes mellitus with hyperglycemia; I10 Essential (primary) hypertension; F32.A Depression, unspecified; Z79.4 Long term (current) use of insulin; B95.61 Methicillin susceptible Staphylococcus aureus infection as the cause of diseases classified elsewhere
CPT/HCPCS: 88304; 88311; 73660; 73720; 80048; 80053; 82962; 83036; 84703; 85025; 85027; 85652; 86140; 87070; 87075; 87076; 87077; 87147; 87186; 87205; 97162; 97165; 99285; A9575